=== PATIENT | male | born 1960 | race Caucasian/White ===

== ENCOUNTER 2018-03-20 09:50 | Inpatient (IN) | payer OTHER ==
[2018-03-20 10:57] LABS: HAAIG REFLEX REFLEX FILED
[2018-03-20 11:03] LABS: WHITE BLOOD COUNT 0.8 10^3/ul (4.8-10.8)
[2018-03-20 11:03] LABS: ABNORMAL IP MESSAGE 1; HEMATOCRIT 20.6 % (42.0-52.0); MEAN CORPUSCULAR HEMOGLOBIN 30.2 pg (29.0-33.0); MEAN CORPUSCULAR HGB CONC 29.6 g/dl (32.0-37.0); MEAN PLATELET VOLUME 8.7 fl (7.4-10.4); PLATELET COUNT 44 10^3/UL (140-415); POSITIVE DIFF @See below; RED BLOOD COUNT 2.02 10^6/ul (4.70-6.10); RED CELL DISTRIBUTION WIDTH 18.2 % (11.5-14.5); RETICULOCYTE COUNT # 0.038 X10^6 (0.020-0.110); RETICULOCYTE COUNT % 1.9 % (0.5-1.5); RETICULOCYTE RBC 2.02
[2018-03-20 11:08] LABS: HEMOGLOBIN 6.1 g/dl (14.0-18.0)
[2018-03-20 11:09] LABS: ADD MAN DIFF? YES
[2018-03-20 11:20] LABS: ALANINE AMINOTRANSFERASE 16 IU/L (13-69); ALBUMIN 4.6 g/dl (3.3-4.9); ALBUMIN/GLOBULIN RATIO 1.24; ALKALINE PHOSPHATASE 37 IU/L (42-121); ANION GAP 6 (5-13); ASPARTATE AMINO TRANSFERASE 15 IU/L (15-46); BILIRUBIN,INDIRECT 0.5 mg/dl (0-1.1); BILIRUBIN,TOTAL 0.5 mg/dl (0.2-1.3); BLOOD UREA NITROGEN 20 mg/dl (7-20); CALCIUM 9.6 mg/dl (8.4-10.2); CARBON DIOXIDE 26 mmol/L (21-31); CHLORIDE 107 mmol/L (97-110); CREATININE 0.98 mg/dl (0.61-1.24); Estimated GFR > 60 mL/min (>60); GLUCOSE 99 mg/dl (70-220); LACTATE DEHYDROGENASE 335 IU/L (313-618); POTASSIUM 4.6 mmol/L (3.5-5.1); TOTAL PROTEIN 8.3 g/dl (6.1-8.1)
[2018-03-20 11:22] LABS: INR 1.22; PROTIME 15.5 Sec (11.9-14.9); PT RATIO 1.2
[2018-03-20 11:26] LABS: SODIUM 139 mmol/L (135-144)
[2018-03-20 11:51] LABS: HEPATITIS B SURFACE ANTIGEN NEGATIVE (NEGATIVE)
[2018-03-20 12:04] LABS: ANISOCYTOSIS 2+ (0-0); ERYTHROBLAST% (NRBC) (M) 1 % (0-0); HYPOCHROMASIA 2+ (0-0); LYMPHOCYTES #M 0.5 10^3/ul (0.8-2.9); LYMPHOCYTES % (M) 66 % (15-51); MICROCYTOSIS 1+ (0-0); MONOCYTES % (M) 7 % (0-11); OVALOCYTES 1+ (0-0); PLATELET ESTIMATE SIG DECREASED; POIKILOCYTOSIS 2+ (0-0); POLYCHROMASIA 3+ (0-0); RBC MORPHOLOGY COMMENT @See below; REACTIVE LYMPHOCYTES% (M) 4 % (0-0); SEGMENTED NEUTROPHILS (M) % 23 % (39-77); SMUDGE%M 2 % (0-0); TEAR DROP CELLS 1+ (0-0); WBC MORPHOLOGY COMMENT @See below
[2018-03-20 12:09] LABS: HEPATITIS B CORE ANTIBODY NEGATIVE (NEGATIVE); HEPATITIS C VIRAL ANTIBODY NEGATIVE (NEGATIVE)
[2018-03-20] MEDS ORDERED: ONDANSETRON 4 MG INJ IV ×2 (12:30→18:00)
[2018-03-20] MEDS ORDERED: ACETAMINOPHEN 325 MG TAB PO ×2 (12:30→18:00)
[2018-03-20] MEDS: SOD CHLORIDE 0.9% 0 ML IV (13:05)
[2018-03-20] MEDS: SOD CHLORIDE 0.9% 500 ML (14:50)
[2018-03-20] MEDS: MIDAZOLAM 1 MG/ML 2 ML INJ (15:30)
[2018-03-20] MEDS: FENTAnyl 50 MCG/ML VIAL (15:30)
[2018-03-20] MEDS: LIDOCAINE 1% (MPF) 5 ML VIAL (15:30)
[2018-03-20] MEDS ORDERED: HYDROCODONE/APAP (5/325) TAB PO (18:00)
[2018-03-20] MEDS ORDERED: NACL 0.9% 3 ML SYG IV (18:00)
[2018-03-20] MEDS ORDERED: METOCLOPRAMIDE 10 MG INJ IV (18:00)
[2018-03-20] MEDS ORDERED: DOCUSATE SODIUM 100 MG CAP PO (18:00)
[2018-03-20] MEDS: SOD CHLORIDE 0.9% 1,000 ML IV (18:59)
[2018-03-20] MEDS: SOD CHLORIDE 0.9% 100 ML (23:26)
[2018-03-20] MEDS: IOHEXOL 300MG/ML 150 ML BTL (23:26)
[2018-03-21 05:22] LABS: ABNORMAL IP MESSAGE 1; HEMATOCRIT 18.9 % (42.0-52.0); MEAN CORPUSCULAR HEMOGLOBIN 29.8 pg (29.0-33.0); MEAN CORPUSCULAR HGB CONC 30.2 g/dl (32.0-37.0); MEAN PLATELET VOLUME 10.8 fl (7.4-10.4); PLATELET COUNT 42 10^3/UL (140-415); POSITIVE DIFF @See below; RED BLOOD COUNT 1.91 10^6/ul (4.70-6.10)
[2018-03-21] MEDS: PANTOPRAZOLE 40 MG INJ IV (05:36)
[2018-03-21 06:05] LABS: ADD MAN DIFF? YES; HEMOGLOBIN 5.7 g/dl (14.0-18.0); PATH REVIEW? YES
[2018-03-21 09:05] LABS: ANISOCYTOSIS 1+ (0-0); ERYTHROBLAST% (NRBC) (M) 1 % (0-0); GIANT THROMBO% (M) 1 % (0-0); LYMPHOCYTES #M 0.8 10^3/ul (0.8-2.9); LYMPHOCYTES % (M) 80 % (15-51); MICROCYTOSIS 1+ (0-0); MONOCYTES % (M) 3 % (0-11); OVALOCYTES 1+ (0-0); PLATELET ESTIMATE DECREASED; POIKILOCYTOSIS 2+ (0-0); POLYCHROMASIA 1+ (0-0); SEGMENTED NEUTROPHILS (M) % 17 % (39-77); SMUDGE%M 2 % (0-0)
[2018-03-21 10:54] LABS: IMMEDIATE SPIN CROSSMATCH 1 3
[2018-03-21 10:56] LABS: HAPTOGLOBIN 110 mg/dL (43-212)
[2018-03-21 14:27] LABS: IRON 74 ug/dl (35-150)
[2018-03-21 14:36] LABS: % IRON SATURATION 26 % SAT (22-52); TOTAL IRON BINDING CAPACITY 287 ug/dl (241-421)
[2018-03-21 17:19] LABS: HEMATOCRIT 20.4 % (42.0-52.0)
[2018-03-21 17:21] LABS: HEMOGLOBIN 6.3 g/dl (14.0-18.0)
== END 2018-03-21 18:30 | disposition home or self-care (01) | DRG 842 ==
LOC: MS1 15:00 → E/R 09:50 → MS1 12:17
PROVIDERS: Pediatrics
PROC: 07DR3ZX Extraction of Iliac Bone Marrow, Percutaneous Approach, Diagnostic (ICD-10-PCS; principal; 2018-03-20)
PROC: 30233N1 Transfusion of Nonautologous Red Blood Cells into Peripheral Vein, Percutaneous Approach (ICD-10-PCS; 2018-03-20)
DX: C91.40 Hairy cell leukemia not having achieved remission (principal)
CPT/HCPCS: 36415; 36430; 74177; 77012; 80053; 83010; 83540; 83615; 84443; 85014; 85018; 85025; 85045; 85610; 85730; 86644; 86704; 86709; 86803; 86850; 86900; 86901; 86920; 86945; 87340; 88305; 88313; 88341; 88342; 93005; 99285-25

== ENCOUNTER 2018-05-12 07:18 | Inpatient (IN) | payer OTHER ==
[2018-05-12 07:52] LABS: ABNORMAL IP MESSAGE 1; MEAN CORPUSCULAR HEMOGLOBIN 29.6 pg (29.0-33.0); MEAN CORPUSCULAR HGB CONC 29.4 g/dl (32.0-37.0); MEAN CORPUSCULAR VOLUME 100.6 fl (82.0-101.0); MEAN PLATELET VOLUME 9.9 fl (7.4-10.4); PLATELET COUNT 46 10^3/UL (140-415); RED BLOOD COUNT 1.69 10^6/ul (4.70-6.10); RED CELL DISTRIBUTION WIDTH 18.6 % (11.5-14.5)
[2018-05-12 07:52] LABS: WHITE BLOOD COUNT 0.3 10^3/ul (4.8-10.8)
[2018-05-12 07:57] LABS: ADD MAN DIFF? YES
[2018-05-12] MEDS: SOD CHLORIDE 0.9% 0 ML IV ×2 (07:58→08:18)
[2018-05-12 08:08] LABS: ALANINE AMINOTRANSFERASE 14 IU/L (13-69); ALBUMIN 4.1 g/dl (3.3-4.9); ALBUMIN/GLOBULIN RATIO 1.13; ALKALINE PHOSPHATASE 30 IU/L (42-121); ANION GAP 11 (5-13); ASPARTATE AMINO TRANSFERASE 10 IU/L (15-46); BILIRUBIN,INDIRECT 1.3 mg/dl (0-1.1); BILIRUBIN,TOTAL 1.3 mg/dl (0.2-1.3); BLOOD UREA NITROGEN 21 mg/dl (7-20); CARBON DIOXIDE 24 mmol/L (21-31); CHLORIDE 101 mmol/L (97-110); CREATININE 0.82 mg/dl (0.61-1.24); Estimated GFR > 60 mL/min (>60); GLUCOSE 119 mg/dl (70-220); POTASSIUM 4.7 mmol/L (3.5-5.1); SODIUM 136 mmol/L (135-144); TOTAL PROTEIN 7.7 g/dl (6.1-8.1)
[2018-05-12 08:11] LABS: INR 1.26; PROTIME 15.9 Sec (11.9-14.9); PT RATIO 1.2
[2018-05-12 08:12] LABS: PARTIAL THROMBOPLASTIN TIME 34.6 Sec (23.0-35.0)
[2018-05-12] MEDS ORDERED: ONDANSETRON 4 MG INJ IV ×2 (08:30→16:00)
[2018-05-12] MEDS ORDERED: ACETAMINOPHEN 325 MG TAB PO ×2 (08:30→16:00)
[2018-05-12 09:53] LABS: BAND NEUTROPHILS % (M) 2 % (0-4); EOSINOPHILS % (M) 1 % (0.0-7.0); LYMPHOCYTES # 0.2 10^3/ul (0.8-2.9); LYMPHOCYTES #M 0.2 10^3/ul (0.8-2.9); LYMPHOCYTES % (M) 71 % (15-51); MONOCYTES % (M) 6 % (0-11); REACTIVE LYMPHOCYTES% (M) 2 % (0-0); SEG NEUT #M 0.1 10^3/ul (1.7-7.5); SEGMENTED NEUTROPHILS (M) % 18 % (39-77)
[2018-05-12 09:57] LABS: ANISOCYTOSIS 1+ (0-0)
[2018-05-12 09:58] LABS: POLYCHROMASIA 1+ (0-0)
[2018-05-12 09:59] LABS: PATH REVIEW? YES
[2018-05-12 10:00] LABS: POSITIVE DIFF 100
[2018-05-12 10:22] LABS: OVALOCYTES 2+ (0-0); POIKILOCYTOSIS 1+ (0-0)
[2018-05-12] MEDS: FILGRASTIM 480 MCG INJ SC (10:51)
[2018-05-12 15:15] LABS: WHITE BLOOD COUNT 0.4 10^3/ul (4.8-10.8)
[2018-05-12 15:15] LABS: ABNORMAL IP MESSAGE 1; HEMATOCRIT 16.9 % (42.0-52.0); MEAN CORPUSCULAR HEMOGLOBIN 30.4 pg (29.0-33.0); MEAN CORPUSCULAR HGB CONC 30.8 g/dl (32.0-37.0); MEAN CORPUSCULAR VOLUME 98.8 fl (82.0-101.0); MEAN PLATELET VOLUME 9.8 fl (7.4-10.4); PLATELET COUNT 46 10^3/UL (140-415); POSITIVE DIFF @See below; RED BLOOD COUNT 1.71 10^6/ul (4.70-6.10); RED CELL DISTRIBUTION WIDTH 19.4 % (11.5-14.5)
[2018-05-12 15:28] LABS: HEMOGLOBIN 5.2 g/dl (14.0-18.0)
[2018-05-12 15:31] LABS: ADD MAN DIFF? YES; PATH REVIEW? NO
[2018-05-12] MEDS ORDERED: MAGNESIUM HYDROXIDE 30ML CUP PO (16:00)
[2018-05-12] MEDS ORDERED: NACL 0.9% 3 ML SYG IV (16:00)
[2018-05-12] MEDS ORDERED: DOCUSATE SODIUM 100 MG CAP PO (16:00)
[2018-05-12] MEDS ORDERED: ZOLPIDEM 5 MG TAB PO (16:00)
[2018-05-12] MEDS ORDERED: BISACODYL (EC) 5 MG TAB PO (16:00)
[2018-05-12] MEDS: CEFTRIAXONE 1 GM/50 ML (PMX) 50 ML IVPB (16:18)
[2018-05-12] MEDS: SOD CHLORIDE 0.9% 1,000 ML IV (16:19)
[2018-05-12] MEDS: ACETAMINOPHEN 325 MG TAB PO (20:03)
[2018-05-12] MEDS ORDERED: DIPHENHYDRAMINE 50 MG INJ (20:12)
[2018-05-12] MEDS: DIPHENHYDRAMINE 50 MG INJ IV (20:27)
[2018-05-13] MEDS: PANTOPRAZOLE 40 MG INJ IV (05:22)
[2018-05-13 05:24] LABS: WHITE BLOOD COUNT 0.4 10^3/ul (4.8-10.8)
[2018-05-13 05:24] LABS: ABNORMAL IP MESSAGE 1; HEMATOCRIT 16.4 % (42.0-52.0); MEAN CORPUSCULAR HEMOGLOBIN 30.4 pg (29.0-33.0); MEAN CORPUSCULAR HGB CONC 31.1 g/dl (32.0-37.0); MEAN CORPUSCULAR VOLUME 97.6 fl (82.0-101.0); MEAN PLATELET VOLUME 9.4 fl (7.4-10.4); PLATELET COUNT 41 10^3/UL (140-415); POSITIVE DIFF @See below; RED BLOOD COUNT 1.68 10^6/ul (4.70-6.10); RED CELL DISTRIBUTION WIDTH 19.1 % (11.5-14.5)
[2018-05-13 05:44] LABS: HEMOGLOBIN 5.1 g/dl (14.0-18.0)
[2018-05-13 05:45] LABS: ADD MAN DIFF? YES
[2018-05-13] MEDS ORDERED: PANTOPRAZOLE 40 MG INJ IV (06:00)
[2018-05-13 06:11] LABS: ANION GAP 10 (5-13); BLOOD UREA NITROGEN 24 mg/dl (7-20); CARBON DIOXIDE 25 mmol/L (21-31); CHLORIDE 102 mmol/L (97-110); CREATININE 0.85 mg/dl (0.61-1.24); GLUCOSE 115 mg/dl (70-220); POTASSIUM 4.8 mmol/L (3.5-5.1); SODIUM 137 mmol/L (135-144)
[2018-05-13 06:12] LABS: ALANINE AMINOTRANSFERASE 15 IU/L (13-69); ALBUMIN 3.5 g/dl (3.3-4.9); ALBUMIN/GLOBULIN RATIO 1.06; ALKALINE PHOSPHATASE 27 IU/L (42-121); ASPARTATE AMINO TRANSFERASE 9 IU/L (15-46); BILIRUBIN,INDIRECT 1.6 mg/dl (0-1.1); BILIRUBIN,TOTAL 1.6 mg/dl (0.2-1.3); CALCIUM 8.7 mg/dl (8.4-10.2); Estimated GFR > 60 mL/min (>60); TOTAL PROTEIN 6.8 g/dl (6.1-8.1)
[2018-05-13 08:39] LABS: ADD MAN DIFF? NO
[2018-05-13 08:42] LABS: ABNORMAL IP MESSAGE 1; HEMATOCRIT 15.8 % (42.0-52.0); LYMPHOCYTES # 0.2 10^3/ul (0.8-2.9); MEAN CORPUSCULAR HEMOGLOBIN 31.3 pg (29.0-33.0); MEAN CORPUSCULAR HGB CONC 32.3 g/dl (32.0-37.0); MEAN CORPUSCULAR VOLUME 96.9 fl (82.0-101.0); MEAN PLATELET VOLUME 11.1 fl (7.4-10.4); NEUTROPHIL # 0.1 10^3/ul (1.6-7.5); NEUTROPHILS % 31.6 % (39.0-77.0); PLATELET COUNT 50 10^3/UL (140-415); POSITIVE DIFF @See below; RED BLOOD COUNT 1.63 10^6/ul (4.70-6.10)
[2018-05-13 08:54] LABS: LYMPHOCYTES % 52.6 % (15.0-51.0)
[2018-05-13 08:56] LABS: HEMOGLOBIN 5.1 g/dl (14.0-18.0)
[2018-05-13 09:01] LABS: LACTATE DEHYDROGENASE 321 IU/L (313-618)
[2018-05-13 09:02] LABS: ALANINE AMINOTRANSFERASE 14 IU/L (13-69); ALBUMIN 3.5 g/dl (3.3-4.9); ALBUMIN/GLOBULIN RATIO 1.09; ALKALINE PHOSPHATASE 27 IU/L (42-121); ANION GAP 9 (5-13); ASPARTATE AMINO TRANSFERASE < 8 IU/L (15-46); BILIRUBIN,INDIRECT 1.6 mg/dl (0-1.1); BILIRUBIN,TOTAL 1.6 mg/dl (0.2-1.3); BLOOD UREA NITROGEN 24 mg/dl (7-20); CALCIUM 8.7 mg/dl (8.4-10.2); CARBON DIOXIDE 25 mmol/L (21-31); CHLORIDE 102 mmol/L (97-110); CREATININE 0.89 mg/dl (0.61-1.24); Estimated GFR > 60 mL/min (>60); GLUCOSE 111 mg/dl (70-220); POTASSIUM 4.8 mmol/L (3.5-5.1); SODIUM 136 mmol/L (135-144); TOTAL PROTEIN 6.7 g/dl (6.1-8.1)
[2018-05-13] MEDS: METHYLPREDNISOLONE 125 MG INJ IV ×2 (09:42→20:57)
[2018-05-13] MEDS: EPOETIN ALFA-EPBX (NON-ESRD 10,000 UNIT/ML VIAL SC (09:44)
[2018-05-13] MEDS: ACETAMINOPHEN 325 MG TAB PO (09:52)
[2018-05-13 10:41] LABS: ANISOCYTOSIS 2+ (0-0); BAND NEUTROPHILS % (M) 6 % (0-4); LYMPHOCYTES #M 0.1 10^3/ul (0.8-2.9); LYMPHOCYTES % (M) 41 % (15-51); METAMYELOCYTES %M 1 % (0-0); MICROCYTOSIS 1+ (0-0); MONOCYTES % (M) 2 % (0-11); OVALOCYTES 2+ (0-0); PLATELET ESTIMATE DECREASED; POIKILOCYTOSIS 2+ (0-0); POLYCHROMASIA 3+ (0-0); RBC MORPHOLOGY COMMENT @See below; REACTIVE LYMPHOCYTES% (M) 1 % (0-0); SEG NEUT #M 0.2 10^3/ul (1.6-7.5); SEGMENTED NEUTROPHILS (M) % 49 % (39-77); SMUDGE%M 4 % (0-0); TOXIC GRANULATION 1+ (0-0); WBC MORPHOLOGY COMMENT @See below
[2018-05-13 10:44] LABS: WHITE BLOOD COUNT 0.4 10^3/ul (4.8-10.8)
[2018-05-13 10:51] LABS: IMMEDIATE SPIN CROSSMATCH 1 9
[2018-05-13 11:21] LABS: OCCULT BLOOD STOOL NEGATIVE (NEGATIVE)
[2018-05-13 12:00] LABS: RETICULOCYTE RBC 1.68
[2018-05-13 12:00] LABS: RETICULOCYTE COUNT % 1.2 % (0.5-1.5)
[2018-05-13] MEDS: CEFTRIAXONE 1 GM/50 ML (PMX) 50 ML IVPB (14:57)
[2018-05-13] MEDS: SOD CHLORIDE 0.9% 1,000 ML IV (18:04)
[2018-05-14] MEDS: PANTOPRAZOLE 40 MG INJ IV (06:08)
[2018-05-14 06:36] LABS: WHITE BLOOD COUNT 0.4 10^3/ul (4.8-10.8)
[2018-05-14 06:36] LABS: ABNORMAL IP MESSAGE 1; HEMATOCRIT 22.1 % (42.0-52.0); MEAN CORPUSCULAR HEMOGLOBIN 30.2 pg (29.0-33.0); MEAN CORPUSCULAR HGB CONC 31.7 g/dl (32.0-37.0); MEAN CORPUSCULAR VOLUME 95.3 fl (82.0-101.0); MEAN PLATELET VOLUME 11.7 fl (7.4-10.4); PLATELET COUNT 59 10^3/UL (140-415); POSITIVE DIFF @See below; RED BLOOD COUNT 2.32 10^6/ul (4.70-6.10); RED CELL DISTRIBUTION WIDTH 18.9 % (11.5-14.5)
[2018-05-14 06:43] LABS: ADD MAN DIFF? YES
[2018-05-14 07:07] LABS: ALANINE AMINOTRANSFERASE 19 IU/L (13-69); ALBUMIN 3.7 g/dl (3.3-4.9); ALBUMIN/GLOBULIN RATIO 1.05; ALKALINE PHOSPHATASE 32 IU/L (42-121); ANION GAP 10 (5-13); ASPARTATE AMINO TRANSFERASE 10 IU/L (15-46); BLOOD UREA NITROGEN 22 mg/dl (7-20); CALCIUM 9.1 mg/dl (8.4-10.2); CARBON DIOXIDE 24 mmol/L (21-31); CHLORIDE 105 mmol/L (97-110); CREATININE 0.78 mg/dl (0.61-1.24); Estimated GFR > 60 mL/min (>60); GLUCOSE 152 mg/dl (70-220); SODIUM 139 mmol/L (135-144); TOTAL PROTEIN 7.2 g/dl (6.1-8.1)
[2018-05-14] MEDS: SOD CHLORIDE 0.9% 1,000 ML IV ×2 (08:00→19:11)
[2018-05-14 09:10] LABS: ANISOCYTOSIS 1+ (0-0); BAND NEUTROPHILS % (M) 13 % (0-4); BURR CELLS 1+ (0-0); ELLIPTO 1+ (0-0); EOSINOPHILS % (M) 2 % (0-7); ERYTHROBLAST% (NRBC) (M) 2 % (0-0); LYMPHOCYTES #M 0.1 10^3/ul (0.8-2.9); LYMPHOCYTES % (M) 28 % (15-51); MICROCYTOSIS 1+ (0-0); MONOCYTES % (M) 1 % (0-11); PLATELET ESTIMATE DECREASED; POIKILOCYTOSIS 1+ (0-0); POLYCHROMASIA 1+ (0-0); SEG NEUT #M 0.2 10^3/ul (1.6-7.5); SEGMENTED NEUTROPHILS (M) % 57 % (39-77); TEAR DROP CELLS 1+ (0-0)
[2018-05-14 09:43] LABS: ADD UMIC NO; UR ASCORBIC ACID NEGATIVE (NEGATIVE); UR BILIRUBIN (Dip) NEGATIVE (NEGATIVE); UR BLOOD (Dip) NEGATIVE (NEGATIVE); UR CLARITY CLEAR (CLEAR); UR COLOR YELLOW (YELLOW); UR GLUCOSE (Dip) NEGATIVE (NEGATIVE); UR KETONES (Dip) NEGATIVE (NEGATIVE); UR LEUKOCYTE ESTERASE (Dip) NEGATIVE Leu/ul (NEGATIVE); UR NITRITE (Dip) NEGATIVE (NEGATIVE); UR TOTAL PROTEIN (Dip) NEGATIVE (NEGATIVE); UR UROBILINOGEN (Dip) 2+ mg/dL (NEGATIVE)
[2018-05-14] MEDS: METHYLPREDNISOLONE 125 MG INJ IV ×2 (10:17→21:17)
[2018-05-14 10:49] LABS: PRETRANSFUSION BILIRUBIN 1.1 mg/dl
[2018-05-14 12:29] LABS: RETICULOCYTE RBC 2.28
[2018-05-14 12:29] LABS: RETICULOCYTE COUNT # 0.036 X10^6 (0.020-0.110); RETICULOCYTE COUNT % 1.6 % (0.5-1.5)
[2018-05-14] MEDS: CEFTRIAXONE 1 GM/50 ML (PMX) 50 ML IVPB (17:54)
[2018-05-14] MEDS: FILGRASTIM 480 MCG INJ SC (19:08)
[2018-05-14 21:39] LABS: TRANSFUSION REACTION 1 1
[2018-05-15] MEDS: PANTOPRAZOLE 40 MG INJ IV (05:36)
[2018-05-15 06:16] LABS: ABNORMAL IP MESSAGE 1; HEMATOCRIT 24.5 % (42.0-52.0); HEMOGLOBIN 7.7 g/dl (14.0-18.0); MEAN CORPUSCULAR HGB CONC 31.4 g/dl (32.0-37.0); MEAN CORPUSCULAR VOLUME 95.3 fl (82.0-101.0); MEAN PLATELET VOLUME 10.2 fl (7.4-10.4); PLATELET COUNT 59 10^3/UL (140-415); POSITIVE DIFF @See below; RED BLOOD COUNT 2.57 10^6/ul (4.70-6.10); RED CELL DISTRIBUTION WIDTH 18.3 % (11.5-14.5)
[2018-05-15 06:16] LABS: WHITE BLOOD COUNT 0.4 10^3/ul (4.8-10.8)
[2018-05-15 06:23] LABS: ADD MAN DIFF? YES
[2018-05-15] MEDS: METHYLPREDNISOLONE 125 MG INJ IV (09:00)
[2018-05-15 10:35] LABS: ANISOCYTOSIS 1+ (0-0); BAND NEUTROPHILS % (M) 10 % (0-4); BURR CELLS 1+ (0-0); ERYTHROBLAST% (NRBC) (M) 2 % (0-0); GIANT THROMBO% (M) 2 % (0-0); LYMPHOCYTES #M 0.1 10^3/ul (0.8-2.9); LYMPHOCYTES % (M) 42 % (15-51); MICROCYTOSIS 1+ (0-0); OVALOCYTES 1+ (0-0); PLATELET ESTIMATE SIG DECREASED; POIKILOCYTOSIS 1+ (0-0); POLYCHROMASIA 3+ (0-0); SEG NEUT #M 0.2 10^3/ul (1.6-7.5); SEGMENTED NEUTROPHILS (M) % 49 % (39-77); SMUDGE%M 10 % (0-0); TEAR DROP CELLS 1+ (0-0)
[2018-05-15 12:26] LABS: HAPTOGLOBIN 157 mg/dL (43-212)
[2018-05-15] MEDS: CEFTRIAXONE 1 GM/50 ML (PMX) 50 ML IVPB (13:36)
== END 2018-05-15 15:20 | disposition home or self-care (01) | DRG 809 ==
LOC: E/R 07:18 → PP2 12:59
PROC: 30233N1 Transfusion of Nonautologous Red Blood Cells into Peripheral Vein, Percutaneous Approach (ICD-10-PCS; principal; 2018-05-12)
DX: D61.810 Antineoplastic chemotherapy induced pancytopenia (principal); C91.40 Hairy cell leukemia not having achieved remission; R50.81 Fever presenting with conditions classified elsewhere; R16.1 Splenomegaly, not elsewhere classified; T45.1X5A Adverse effect of antineoplastic and immunosuppressive drugs, initial encounter
CPT/HCPCS: 36415; 36430; 80053; 81003; 82270; 83010; 83615; 85025; 85045; 85610; 85730; 86078; 86644; 86850; 86880; 86885; 86900; 86901; 86920; 86945; 87040-91; 93005; 99291-25

== ENCOUNTER 2018-06-01 14:30 | Inpatient (IN) | payer OTHER ==
[2018-06-01] MEDS: SODIUM CHLORIDE 0.9% 1L BAG IV* (14:52)
[2018-06-01] MEDS: CEFEPIME 2GM/50 ML (PMX) 50 ML IVPB (14:55)
[2018-06-01] MEDS: ACETAMINOPHEN 325 MG TAB PO (14:56)
[2018-06-01 14:58] LABS: WHITE BLOOD COUNT 0.6 10^3/ul (4.8-10.8)
[2018-06-01 14:58] LABS: ABNORMAL IP MESSAGE 1; HEMATOCRIT 23.6 % (42.0-52.0); HEMOGLOBIN 7.5 g/dl (14.0-18.0); MEAN CORPUSCULAR HEMOGLOBIN 30.7 pg (29.0-33.0); MEAN CORPUSCULAR HGB CONC 31.8 g/dl (32.0-37.0); MEAN CORPUSCULAR VOLUME 96.7 fl (82.0-101.0); MEAN PLATELET VOLUME 10.4 fl (7.4-10.4); PLATELET COUNT 158 10^3/UL (140-415); POSITIVE DIFF @See below; RED BLOOD COUNT 2.44 10^6/ul (4.70-6.10); RED CELL DISTRIBUTION WIDTH 18.6 % (11.5-14.5)
[2018-06-01 15:17] LABS: ADD MAN DIFF? YES; ALANINE AMINOTRANSFERASE 23 IU/L (13-69); ALBUMIN 4.3 g/dl (3.3-4.9); ALKALINE PHOSPHATASE 52 IU/L (42-121); ANION GAP 15 (5-13); ASPARTATE AMINO TRANSFERASE 20 IU/L (15-46); BILIRUBIN,INDIRECT 1.8 mg/dl (0-1.1); BILIRUBIN,TOTAL 1.8 mg/dl (0.2-1.3); BLOOD UREA NITROGEN 20 mg/dl (7-20); CALCIUM 9.8 mg/dl (8.4-10.2); CARBON DIOXIDE 23 mmol/L (21-31); CHLORIDE 97 mmol/L (97-110); CREATININE 0.99 mg/dl (0.61-1.24); Estimated GFR > 60 mL/min (>60); GLUCOSE 134 mg/dl (70-220); POTASSIUM 4.4 mmol/L (3.5-5.1); SODIUM 135 mmol/L (135-144); TOTAL PROTEIN 8.6 g/dl (6.1-8.1)
[2018-06-01 15:28] LABS: PROTIME 16.3 Sec (11.9-14.9); PT RATIO 1.3; TROPONIN-I < 0.012 ng/ml (0.000-0.120)
[2018-06-01 15:29] LABS: PARTIAL THROMBOPLASTIN TIME 32.6 Sec (23.0-35.0)
[2018-06-01] MEDS: VANCOMYCIN 1 GM (PMX) 250 ML IVPB (15:53)
[2018-06-01 16:05] LABS: ADD UMIC YES; UR ASCORBIC ACID NEGATIVE (NEGATIVE); UR BACTERIA FEW /HPF (NONE SEEN); UR BILIRUBIN (Dip) NEGATIVE (NEGATIVE); UR BLOOD (Dip) NEGATIVE (NEGATIVE); UR CLARITY SLIGHTLY CLOUDY (CLEAR); UR COLOR AMBER (YELLOW); UR GLUCOSE (Dip) NEGATIVE (NEGATIVE); UR KETONES (Dip) TRACE mg/dL (NEGATIVE); UR LEUKOCYTE ESTERASE (Dip) NEGATIVE Leu/ul (NEGATIVE); UR MUCUS MANY /HPF (NONE SEEN); UR NITRITE (Dip) NEGATIVE (NEGATIVE); UR RBC 0 /HPF (0-5); UR SPECIFIC GRAVITY (Dip) 1.025 (1.003-1.030); UR TOTAL PROTEIN (Dip) 2+ mg/dl (NEGATIVE); UR UROBILINOGEN (Dip) 2+ mg/dL (NEGATIVE); UR WBC 2 /HPF (0-5)
[2018-06-01 16:50] LABS: PATH REVIEW? YES
[2018-06-01 17:33] LABS: ANISOCYTOSIS 1+ (0-0); LYMPHOCYTES #M 0.1 10^3/ul (0.8-2.9); MICROCYTOSIS 1+ (0-0); PLATELET ESTIMATE NORMAL; POIKILOCYTOSIS 2+ (0-0); POLYCHROMASIA 3+ (0-0)
[2018-06-01 17:50] LABS: BAND NEUTROPHILS % (M) 2 % (0-4); BASOPHILS % (M) 1 % (0-2); GIANT THROMBO% (M) 2 % (0-0); LYMPHOCYTES % (M) 26 % (15-51); MONOCYTES % (M) 1 % (0-11); REACTIVE LYMPHOCYTES% (M) 3 % (0-0); SEG NEUT #M 0.4 10^3/ul (1.6-7.5); SEGMENTED NEUTROPHILS (M) % 67 % (39-77); SMUDGE%M 11 % (0-0)
[2018-06-01 20:20] LABS: LACTIC ACID 0.9 mmol/L (0.5-2.0)
[2018-06-01] MEDS ORDERED: DOCUSATE SODIUM 100 MG CAP PO (21:00)
[2018-06-01] MEDS ORDERED: NACL 0.9% 3 ML SYG IV (21:00)
[2018-06-01] MEDS ORDERED: BISACODYL (EC) 5 MG TAB PO (21:00)
[2018-06-01] MEDS ORDERED: BISACODYL 10 MG SUPP PR (21:00)
[2018-06-01] MEDS ORDERED: ONDANSETRON 4 MG INJ IV (21:00)
[2018-06-01] MEDS ORDERED: ONDANSETRON 4 MG TAB PO (21:00)
[2018-06-01] MEDS ORDERED: ZOLPIDEM 5 MG TAB PO (21:00)
[2018-06-01] MEDS ORDERED: ACETAMINOPHEN 650 MG SUPP PR (21:00)
[2018-06-01] MEDS ORDERED: MAGNESIUM HYDROXIDE 30ML CUP PO (21:00)
[2018-06-01] MEDS ORDERED: NA PHOSPHATE/BIPHOS 133 ML ENEMA PR (21:00)
[2018-06-01] MEDS: SOD CHLORIDE 0.9% 1,000 ML IV (22:38)
[2018-06-02] MEDS: PANTOPRAZOLE 40 MG INJ IV (05:56)
[2018-06-02] MEDS: CEFEPIME 1GM/50 ML (PMX) 50 ML IVPB ×2 (05:56→17:32)
[2018-06-02 06:01] LABS: WHITE BLOOD COUNT 0.2 10^3/ul (4.8-10.8)
[2018-06-02 06:01] LABS: ABNORMAL IP MESSAGE 1; HEMATOCRIT 16.2 % (42.0-52.0); MEAN CORPUSCULAR HEMOGLOBIN 31.7 pg (29.0-33.0); MEAN CORPUSCULAR HGB CONC 32.1 g/dl (32.0-37.0); MEAN CORPUSCULAR VOLUME 98.8 fl (82.0-101.0); MEAN PLATELET VOLUME 10.5 fl (7.4-10.4); PLATELET COUNT 117 10^3/UL (140-415); POSITIVE DIFF @See below; RED BLOOD COUNT 1.64 10^6/ul (4.70-6.10); RED CELL DISTRIBUTION WIDTH 18.6 % (11.5-14.5)
[2018-06-02 06:15] LABS: ALANINE AMINOTRANSFERASE 33 IU/L (13-69); ALBUMIN 3.2 g/dl (3.3-4.9); ALKALINE PHOSPHATASE 37 IU/L (42-121); ANION GAP 8 (5-13); ASPARTATE AMINO TRANSFERASE 21 IU/L (15-46); BILIRUBIN,INDIRECT 0.9 mg/dl (0-1.1); BILIRUBIN,TOTAL 0.9 mg/dl (0.2-1.3); BLOOD UREA NITROGEN 17 mg/dl (7-20); CALCIUM 8.7 mg/dl (8.4-10.2); CARBON DIOXIDE 24 mmol/L (21-31); CHLORIDE 105 mmol/L (97-110); CREATININE 0.81 mg/dl (0.61-1.24); Estimated GFR > 60 mL/min (>60); GLUCOSE 121 mg/dl (70-220); POTASSIUM 4.3 mmol/L (3.5-5.1); SODIUM 137 mmol/L (135-144); TOTAL PROTEIN 6.4 g/dl (6.1-8.1)
[2018-06-02 07:04] LABS: ADD MAN DIFF? YES; HEMOGLOBIN 5.2 g/dl (14.0-18.0)
[2018-06-02 11:29] LABS: ANISOCYTOSIS 2+ (0-0); BAND NEUTROPHILS % (M) 4 % (0-4); BURR CELLS 1+ (0-0); ELLIPTO 1+ (0-0); GIANT THROMBO% (M) 9 % (0-0); LYMPHOCYTES % (M) 41 % (15-51); MICROCYTOSIS 2+ (0-0); OVALOCYTES 1+ (0-0); PLATELET ESTIMATE DECREASED; POIKILOCYTOSIS 3+ (0-0); POLYCHROMASIA 3+ (0-0); RBC MORPHOLOGY COMMENT @See below; SEG NEUT #M 0.1 10^3/ul (1.6-7.5); SEGMENTED NEUTROPHILS (M) % 56 % (39-77); TOXIC GRANULATION 1+ (0-0); WBC MORPHOLOGY COMMENT @See below
[2018-06-02] MEDS: SOD CHLORIDE 0.9% 1,000 ML IV (20:38)
[2018-06-02] MEDS: FILGRASTIM-AAFI 480 MCG/0.8 ML SYRINGE SC (22:30)
[2018-06-02] MEDS: ACETAMINOPHEN 325 MG TAB PO (22:39)
[2018-06-03 06:36] LABS: ABNORMAL IP MESSAGE 1; HEMATOCRIT 20.8 % (42.0-52.0); MEAN CORPUSCULAR HGB CONC 31.7 g/dl (32.0-37.0); MEAN CORPUSCULAR VOLUME 94.5 fl (82.0-101.0); MEAN PLATELET VOLUME 10.5 fl (7.4-10.4); PLATELET COUNT 118 10^3/UL (140-415); POSITIVE DIFF @See below; RED CELL DISTRIBUTION WIDTH 19.4 % (11.5-14.5)
[2018-06-03 06:36] LABS: WHITE BLOOD COUNT 0.4 10^3/ul (4.8-10.8)
[2018-06-03 06:45] LABS: ADD MAN DIFF? YES; HEMOGLOBIN 6.6 g/dl (14.0-18.0)
[2018-06-03] MEDS: PANTOPRAZOLE (EC) 40 MG TAB PO (06:53)
[2018-06-03] MEDS: CEFEPIME 1GM/50 ML (PMX) 50 ML IVPB ×2 (06:54→18:24)
[2018-06-03] MEDS: SOD CHLORIDE 0.9% 1,000 ML IV (06:57)
[2018-06-03 07:12] LABS: LACTIC ACID 1.1 mmol/L (0.5-2.0)
[2018-06-03 07:21] LABS: ANION GAP 8 (5-13); BLOOD UREA NITROGEN 14 mg/dl (7-20); CARBON DIOXIDE 25 mmol/L (21-31); CHLORIDE 104 mmol/L (97-110); CREATININE 0.78 mg/dl (0.61-1.24); Estimated GFR > 60 mL/min (>60); GLUCOSE 123 mg/dl (70-220); POTASSIUM 4.2 mmol/L (3.5-5.1); SODIUM 137 mmol/L (135-144)
[2018-06-03 11:17] LABS: ANISOCYTOSIS 2+ (0-0); BAND NEUTROPHILS % (M) 7 % (0-4); EOSINOPHILS % (M) 3 % (0-7); ERYTHROBLAST% (NRBC) (M) 0 % (0-0); GIANT THROMBO% (M) 3 % (0-0); HYPOCHROMASIA 1+ (0-0); LYMPHOCYTES % (M) 16 % (15-51); MICROCYTOSIS 2+ (0-0); MONOCYTES % (M) 1 % (0-11); PLATELET ESTIMATE DECREASED; POIKILOCYTOSIS 3+ (0-0); POLYCHROMASIA 3+ (0-0); ROULEAU 1+ (0-0); SEG NEUT #M 0.3 10^3/ul (1.6-7.5); SEGMENTED NEUTROPHILS (M) % 73 % (39-77); SMUDGE%M 9 % (0-0); TOXIC GRANULATION 1+ (0-0)
[2018-06-03 12:45] LABS: OCCULT BLOOD STOOL NEGATIVE (NEGATIVE)
[2018-06-03 14:07] LABS: COLLECTION PERIOD 24 hrs
[2018-06-03] MEDS: ACETAMINOPHEN 325 MG TAB PO ×2 (14:58→23:10)
[2018-06-03 16:18] LABS: VOLUME 2675 mls
[2018-06-03 17:25] LABS: ABNORMAL IP MESSAGE 1; HEMATOCRIT 19.6 % (42.0-52.0); MEAN CORPUSCULAR HEMOGLOBIN 30.4 pg (29.0-33.0); MEAN CORPUSCULAR HGB CONC 32.1 g/dl (32.0-37.0); MEAN CORPUSCULAR VOLUME 94.7 fl (82.0-101.0); MEAN PLATELET VOLUME 10.9 fl (7.4-10.4); PLATELET COUNT 109 10^3/UL (140-415); POSITIVE DIFF @See below; RED BLOOD COUNT 2.07 10^6/ul (4.70-6.10); RED CELL DISTRIBUTION WIDTH 18.6 % (11.5-14.5)
[2018-06-03 17:25] LABS: WHITE BLOOD COUNT 0.5 10^3/ul (4.8-10.8)
[2018-06-03 17:29] LABS: ADD MAN DIFF? YES; HEMOGLOBIN 6.3 g/dl (14.0-18.0)
[2018-06-03 18:30] LABS: ANISOCYTOSIS 1+ (0-0); BAND NEUTROPHILS % (M) 11 % (0-4); BASOPHILS % (M) 2 % (0-2); BURR CELLS 3+ (0-0); EOSINOPHILS % (M) 6 % (0-7); GIANT THROMBO% (M) 10 % (0-0); HYPOCHROMASIA 2+ (0-0); LYMPHOCYTES % (M) 18 % (15-51); OVALOCYTES 3+ (0-0); PLATELET ESTIMATE DECREASED; POIKILOCYTOSIS 3+ (0-0); POLYCHROMASIA 2+ (0-0); SEG NEUT #M 0.3 10^3/ul (1.6-7.5); SEGMENTED NEUTROPHILS (M) % 63 % (39-77); SMUDGE%M 1 % (0-0); TARGET CELLS 3+ (0-0)
[2018-06-03] MEDS: FILGRASTIM-AAFI 480 MCG/0.8 ML SYRINGE SC (20:47)
[2018-06-04] MEDS: PANTOPRAZOLE (EC) 40 MG TAB PO (06:08)
[2018-06-04] MEDS: CEFEPIME 1GM/50 ML (PMX) 50 ML IVPB ×2 (06:08→20:26)
[2018-06-04 08:17] LABS: WHITE BLOOD COUNT 0.4 10^3/ul (4.8-10.8)
[2018-06-04 08:17] LABS: ABNORMAL IP MESSAGE 1; HEMOGLOBIN 7.1 g/dl (14.0-18.0); MEAN CORPUSCULAR HEMOGLOBIN 30.6 pg (29.0-33.0); MEAN CORPUSCULAR HGB CONC 32.3 g/dl (32.0-37.0); MEAN CORPUSCULAR VOLUME 94.8 fl (82.0-101.0); MEAN PLATELET VOLUME 10.9 fl (7.4-10.4); PLATELET COUNT 106 10^3/UL (140-415); POSITIVE DIFF @See below; RED BLOOD COUNT 2.32 10^6/ul (4.70-6.10); RED CELL DISTRIBUTION WIDTH 19.3 % (11.5-14.5)
[2018-06-04 08:35] LABS: ADD MAN DIFF? YES
[2018-06-04 08:42] LABS: ANION GAP 8 (5-13); BLOOD UREA NITROGEN 15 mg/dl (7-20); CALCIUM 8.6 mg/dl (8.4-10.2); CARBON DIOXIDE 25 mmol/L (21-31); CHLORIDE 102 mmol/L (97-110); CREATININE 0.73 mg/dl (0.61-1.24); Estimated GFR > 60 mL/min (>60); GLUCOSE 120 mg/dl (70-220); POTASSIUM 4.2 mmol/L (3.5-5.1); SODIUM 135 mmol/L (135-144)
[2018-06-04 09:38] LABS: ANISOCYTOSIS 2+ (0-0); BAND NEUTROPHILS % (M) 14 % (0-4); EOSINOPHILS % (M) 4 % (0-7); LYMPHOCYTES % (M) 12 % (15-51); MICROCYTOSIS 1+ (0-0); OVALOCYTES 1+ (0-0); PLATELET ESTIMATE DECREASED; POIKILOCYTOSIS 2+ (0-0); POLYCHROMASIA 3+ (0-0); SEG NEUT #M 0.3 10^3/ul (1.6-7.5); SEGMENTED NEUTROPHILS (M) % 70 % (39-77); SMUDGE%M 2 % (0-0); TOXIC GRANULATION 3+ (0-0)
[2018-06-04] MEDS: ACETAMINOPHEN 325 MG TAB PO ×3 (10:10→20:36)
[2018-06-04] MEDS: FENTAnyl 50 MCG/ML VIAL (15:02)
[2018-06-04] MEDS: LIDOCAINE 2% (SDV) 5 ML INJ (15:03)
[2018-06-04 16:21] LABS: IMMEDIATE SPIN CROSSMATCH 1 6
[2018-06-04] MEDS: FILGRASTIM-AAFI 480 MCG/0.8 ML SYRINGE SC (18:09)
[2018-06-04] MEDS: SOD CHLORIDE 0.9% 1,000 ML IV (20:47)
[2018-06-05 05:55] LABS: ABNORMAL IP MESSAGE 1; HEMATOCRIT 24.6 % (42.0-52.0); HEMOGLOBIN 8.2 g/dl (14.0-18.0); MEAN CORPUSCULAR HEMOGLOBIN 31.7 pg (29.0-33.0); MEAN CORPUSCULAR HGB CONC 33.3 g/dl (32.0-37.0); MEAN PLATELET VOLUME 10.4 fl (7.4-10.4); PLATELET COUNT 104 10^3/UL (140-415); POSITIVE DIFF @See below; RED BLOOD COUNT 2.59 10^6/ul (4.70-6.10)
[2018-06-05 05:55] LABS: WHITE BLOOD COUNT 0.4 10^3/ul (4.8-10.8)
[2018-06-05 06:13] LABS: ADD MAN DIFF? YES
[2018-06-05 06:39] LABS: ANION GAP 9 (5-13); BLOOD UREA NITROGEN 16 mg/dl (7-20); CARBON DIOXIDE 26 mmol/L (21-31); CHLORIDE 102 mmol/L (97-110); Estimated GFR > 60 mL/min (>60); GLUCOSE 133 mg/dl (70-220); POTASSIUM 4.7 mmol/L (3.5-5.1); SODIUM 137 mmol/L (135-144)
[2018-06-05] MEDS: PANTOPRAZOLE (EC) 40 MG TAB PO (06:43)
[2018-06-05] MEDS: CEFEPIME 1GM/50 ML (PMX) 50 ML IVPB ×2 (06:43→20:34)
[2018-06-05 09:20] LABS: ANISOCYTOSIS 1+ (0-0); BAND NEUTROPHILS % (M) 5 % (0-4); BASOPHILS % (M) 1 % (0-2); BURR CELLS 1+ (0-0); ERYTHROBLAST% (NRBC) (M) 1 % (0-0); GIANT THROMBO% (M) 7 % (0-0); LYMPHOCYTES % (M) 9 % (15-51); MONOCYTES % (M) 2 % (0-11); OVALOCYTES 1+ (0-0); PLATELET ESTIMATE DECREASED; POIKILOCYTOSIS 2+ (0-0); POLYCHROMASIA 2+ (0-0); SEG NEUT #M 0.3 10^3/ul (1.6-7.5); SEGMENTED NEUTROPHILS (M) % 83 % (39-77); SMUDGE%M 2 % (0-0); TOXIC GRANULATION 2+ (0-0)
[2018-06-05] MEDS: SOD CHLORIDE 0.9% 1,000 ML IV (09:37)
[2018-06-05] MEDS: FILGRASTIM-AAFI 480 MCG/0.8 ML SYRINGE SC (20:36)
[2018-06-06 05:01] LABS: WHITE BLOOD COUNT 0.4 10^3/ul (4.8-10.8)
[2018-06-06 05:01] LABS: ABNORMAL IP MESSAGE 1; HEMATOCRIT 21.4 % (42.0-52.0); HEMOGLOBIN 7.7 g/dl (14.0-18.0); MEAN CORPUSCULAR HEMOGLOBIN 34.4 pg (29.0-33.0); MEAN CORPUSCULAR VOLUME 95.5 fl (82.0-101.0); MEAN PLATELET VOLUME 11.7 fl (7.4-10.4); PLATELET COUNT 106 10^3/UL (140-415); POSITIVE DIFF @See below; RED BLOOD COUNT 2.24 10^6/ul (4.70-6.10); RED CELL DISTRIBUTION WIDTH 18.5 % (11.5-14.5)
[2018-06-06 05:18] LABS: ADD MAN DIFF? YES
[2018-06-06] MEDS: PANTOPRAZOLE (EC) 40 MG TAB PO (05:55)
[2018-06-06 06:27] LABS: ANISOCYTOSIS 1+ (0-0); BAND NEUTROPHILS % (M) 15 % (0-4); EOSINOPHILS % (M) 1 % (0-7); ERYTHROBLAST% (NRBC) (M) 2 % (0-0); LYMPHOCYTES % (M) 23 % (15-51); OVALOCYTES 1+ (0-0); PLATELET ESTIMATE DECREASED; POIKILOCYTOSIS 2+ (0-0); POLYCHROMASIA 3+ (0-0); SEG NEUT #M 0.2 10^3/ul (1.6-7.5); SEGMENTED NEUTROPHILS (M) % 61 % (39-77); SPHEROCYTES 1+ (0-0); TARGET CELLS 1+ (0-0); TOXIC GRANULATION 3+ (0-0)
[2018-06-06] MEDS: CEFEPIME 1GM/50 ML (PMX) 50 ML IVPB ×2 (09:18→23:42)
[2018-06-06] MEDS ORDERED: VANCOMYCIN IV PER PHARMACY XX (12:30)
[2018-06-06] MEDS: FLUCONAZOLE 100 MG TAB PO (13:57)
[2018-06-06] MEDS: VANCOMYCIN HCL 2 GM in SOD CHLORIDE 0.9% 500 ML IVPB (13:57)
[2018-06-06] MEDS: ACETAMINOPHEN 325 MG TAB PO ×2 (14:38→21:35)
[2018-06-06] MEDS: FILGRASTIM-AAFI 480 MCG/0.8 ML SYRINGE SC (19:00)
[2018-06-06 20:51] LABS: IMMEDIATE SPIN CROSSMATCH 1 2
[2018-06-06] MEDS: ACYCLOVIR 400 MG TAB PO (21:10)
[2018-06-07] MEDS: VANCOMYCIN HCL 1.25 GM in SOD CHLORIDE 0.9% 250 ML IVPB ×2 (03:50→13:29)
[2018-06-07] MEDS: ACETAMINOPHEN 325 MG TAB PO ×2 (04:53→21:08)
[2018-06-07] MEDS: PANTOPRAZOLE (EC) 40 MG TAB PO (06:19)
[2018-06-07] MEDS: FLUCONAZOLE 100 MG TAB PO (08:14)
[2018-06-07] MEDS: ACYCLOVIR 400 MG TAB PO ×2 (08:14→21:08)
[2018-06-07] MEDS: CEFEPIME 1GM/50 ML (PMX) 50 ML IVPB ×2 (08:14→21:06)
[2018-06-07 08:32] LABS: ABNORMAL IP MESSAGE 1; HEMATOCRIT 24.1 % (42.0-52.0); HEMOGLOBIN 8.4 g/dl (14.0-18.0); MEAN CORPUSCULAR HEMOGLOBIN 33.3 pg (29.0-33.0); MEAN CORPUSCULAR HGB CONC 34.9 g/dl (32.0-37.0); MEAN CORPUSCULAR VOLUME 95.6 fl (82.0-101.0); PLATELET COUNT 89 10^3/UL (140-415); POSITIVE DIFF @See below; RED BLOOD COUNT 2.52 10^6/ul (4.70-6.10); RED CELL DISTRIBUTION WIDTH 17.5 % (11.5-14.5)
[2018-06-07 08:32] LABS: WHITE BLOOD COUNT 0.4 10^3/ul (4.8-10.8)
[2018-06-07 08:36] LABS: ADD MAN DIFF? YES
[2018-06-07 08:49] LABS: ANION GAP 8 (5-13); BLOOD UREA NITROGEN 16 mg/dl (7-20); CALCIUM 8.4 mg/dl (8.4-10.2); CARBON DIOXIDE 26 mmol/L (21-31); CHLORIDE 101 mmol/L (97-110); CREATININE 0.64 mg/dl (0.61-1.24); Estimated GFR > 60 mL/min (>60); GLUCOSE 124 mg/dl (70-220); POTASSIUM 4.2 mmol/L (3.5-5.1); SODIUM 135 mmol/L (135-144)
[2018-06-07 09:35] LABS: ANISOCYTOSIS 1+ (0-0); BAND NEUTROPHILS % (M) 11 % (0-4); EOSINOPHILS % (M) 2 % (0-7); LYMPHOCYTES % (M) 14 % (15-51); OVALOCYTES 1+ (0-0); PLATELET ESTIMATE DECREASED; POIKILOCYTOSIS 2+ (0-0); POLYCHROMASIA 2+ (0-0); SEG NEUT #M 0.3 10^3/ul (1.6-7.5); SEGMENTED NEUTROPHILS (M) % 73 % (39-77); SPHEROCYTES 1+ (0-0); TOXIC GRANULATION 3+ (0-0)
[2018-06-07] MEDS ORDERED: VANCOMYCIN HCL 1.25 GM in SOD CHLORIDE 0.9% 250 ML IVPB (15:00)
[2018-06-07] MEDS: FUROSEMIDE 20 MG INJ IV (17:38)
[2018-06-07] MEDS: FILGRASTIM-AAFI 480 MCG/0.8 ML SYRINGE SC (21:12)
[2018-06-08 02:49] LABS: VANCOMYCIN,TROUGH 7.5 ug/ml (10.0-20.0)
[2018-06-08] MEDS: VANCOMYCIN HCL 1.25 GM in SOD CHLORIDE 0.9% 250 ML IVPB (02:52)
[2018-06-08 05:37] LABS: ABNORMAL IP MESSAGE 1; HEMATOCRIT 22.3 % (42.0-52.0); HEMOGLOBIN 8.2 g/dl (14.0-18.0); MEAN CORPUSCULAR HEMOGLOBIN 35.2 pg (29.0-33.0); MEAN CORPUSCULAR HGB CONC 36.8 g/dl (32.0-37.0); MEAN CORPUSCULAR VOLUME 95.7 fl (82.0-101.0); MEAN PLATELET VOLUME 11.8 fl (7.4-10.4); PLATELET COUNT 86 10^3/UL (140-415); POSITIVE DIFF @See below; RED BLOOD COUNT 2.33 10^6/ul (4.70-6.10); RED CELL DISTRIBUTION WIDTH 17.3 % (11.5-14.5)
[2018-06-08 05:37] LABS: WHITE BLOOD COUNT 0.5 10^3/ul (4.8-10.8)
[2018-06-08 05:56] LABS: ADD MAN DIFF? YES
[2018-06-08 06:02] LABS: ANION GAP 8 (5-13); BLOOD UREA NITROGEN 17 mg/dl (7-20); CALCIUM 8.5 mg/dl (8.4-10.2); CARBON DIOXIDE 29 mmol/L (21-31); CHLORIDE 99 mmol/L (97-110); CREATININE 0.71 mg/dl (0.61-1.24); Estimated GFR > 60 mL/min (>60); GLUCOSE 126 mg/dl (70-220); POTASSIUM 4.3 mmol/L (3.5-5.1); SODIUM 136 mmol/L (135-144)
[2018-06-08 06:06] LABS: MAGNESIUM 2.1 mg/dl (1.7-2.5)
[2018-06-08 06:06] LABS: PHOSPHORUS 3.4 mg/dl (2.5-4.9)
[2018-06-08] MEDS: PANTOPRAZOLE (EC) 40 MG TAB PO (06:33)
[2018-06-08 07:49] LABS: ANISOCYTOSIS 1+ (0-0); BAND NEUTROPHILS % (M) 4 % (0-4); EOSINOPHILS % (M) 1 % (0-7); GIANT THROMBO% (M) 6 % (0-0); LYMPHOCYTES % (M) 16 % (15-51); METAMYELOCYTES %M 2 % (0-0); MICROCYTOSIS 1+ (0-0); MYELOCYTES % (M) 2 % (0-0); PLATELET ESTIMATE DECREASED; POIKILOCYTOSIS 2+ (0-0); POLYCHROMASIA 2+ (0-0); SEG NEUT #M 0.4 10^3/ul (1.6-7.5); SEGMENTED NEUTROPHILS (M) % 75 % (39-77); SMUDGE%M 2 % (0-0); SPHEROCYTES 1+ (0-0); TOXIC GRANULATION 3+ (0-0)
[2018-06-08] MEDS: ACYCLOVIR 400 MG TAB PO (08:44)
[2018-06-08] MEDS: FLUCONAZOLE 100 MG TAB PO (08:45)
[2018-06-08] MEDS: CEFEPIME 1GM/50 ML (PMX) 50 ML IVPB (08:47)
[2018-06-08] MEDS: VANCOMYCIN HCL 1.5 GM in SOD CHLORIDE 0.9% 250 ML IVPB (13:02)
[2018-06-08 13:19] LABS: HAAIG REFLEX REFLEX FILED
[2018-06-08 13:57] LABS: HEPATITIS B SURFACE ANTIGEN NEGATIVE (NEGATIVE)
[2018-06-08 14:15] LABS: HEPATITIS B CORE ANTIBODY NEGATIVE (NEGATIVE); HEPATITIS C VIRAL ANTIBODY NEGATIVE (NEGATIVE)
== END 2018-06-08 16:00 | disposition home or self-care (01) | DRG 872 ==
LOC: E/R 14:30 → 2NE 06-05 16:34 → 6WM 16:32
PROC: 07DR3ZX Extraction of Iliac Bone Marrow, Percutaneous Approach, Diagnostic (ICD-10-PCS; principal; 2018-06-04)
PROC: 30233N1 Transfusion of Nonautologous Red Blood Cells into Peripheral Vein, Percutaneous Approach (ICD-10-PCS; 2018-06-05)
DX: A41.9 Sepsis, unspecified organism (principal); C91.40 Hairy cell leukemia not having achieved remission; D61.818 Other pancytopenia; D70.9 Neutropenia, unspecified; R50.81 Fever presenting with conditions classified elsewhere; E66.9 Obesity, unspecified; Z68.34 Body mass index [BMI] 34.0-34.9, adult; R80.9 Proteinuria, unspecified; R19.7 Diarrhea, unspecified
CPT/HCPCS: 36415; 36430; 71045; 76700; 77012; 80048; 80053; 80202; 81001; 82270; 83605; 83735; 84100; 84156; 84484; 85025; 85610; 85730; 86644; 86704; 86709; 86803; 86850; 86870; 86900; 86901; 86920; 86945; 87040-91; 87086; 87340; 87400; 88305; 88311; 88313; 88341; 88342; 93005; 93306; 96374; 96375; 99285-25